=== PATIENT | male | born 1990 | race Caucasian/White ===

== ENCOUNTER 2018-04-09 13:26 | Emergency (ER) | payer MEDICAID, OTHER ==
[~2018-04-09] VITALS: Ht 188 cm; Wt 146.1 kg
[2018-04-09 13:30] VITALS: Ht 188 cm; Wt 146.1 kg
[2018-04-09 14:26] LABS: microscopic required? NO
[2018-04-09 14:58] LABS: UA SPECIFIC GRAVITY >=1.030 (1.005-1.035); urine erythrocyte NEGATIVE (NEGATIVE)
[2018-04-09 15:47] VITALS: BP 147/99
== END 2018-04-09 15:47 | disposition home or self-care (01) ==
LOC: ED 13:26
PROVIDERS: Emergency Medicine
DX: N50.812 Left testicular pain (principal)
CPT/HCPCS: 87491; 87591; J0696; J1885; J2001; Q0092